=== PATIENT | female | born 1965 | race Caucasian/White ===

== ENCOUNTER 2021-12-05 12:25 | Emergency (ER) | payer MEDICARE, OTHER ==
[2021-12-05] MEDS ORDERED: MOBIC15 MG PO (14:28)
[2021-12-05] MEDS ORDERED: ONDANSETRON ODT4 MG SL (14:28)
== END 2021-12-05 14:35 | disposition home or self-care (01) ==
LOC: ER1 12:25
DX: M17.11 Unilateral primary osteoarthritis, right knee (principal); F17.200 Nicotine dependence, unspecified, uncomplicated; I10 Essential (primary) hypertension; Z88.2 Allergy status to sulfonamides; Z87.81 Personal history of (healed) traumatic fracture
CPT/HCPCS: 29505; 73562; 99283

== ENCOUNTER → 2022-01-07 | Outpatient (CLI) | payer MEDICARE, OTHER ==
[~2022-01-07] MED LIST: ASPIRIN EC81 MG PO; CLONAZEPAM1 MG PO; COLCHICINE0.6 MG PO; CRESTOR10 MG PO; CYCLOBENZAPRINE10 MG PO; ENDOCET 7.5-321 EACH PO; LEVOTHYROXINE25 MC1 PO; MOBIC15 MG PO; ONDANSETRON ODT4 MG SL; PROTONIX 40 MG40 M1 PO; QUETIAPINE FUM200 MG PO; ROPINIROLE HC0.25 MG PO; VITAMIN D21250 MCG PO; ZOFRAN 4 MG TAB4 MG PO; ZOLOFT100 MG PO
[2022-01-07 14:49] LABS: BUN/CREATININE RATIO 14 (0-10)
== END ==
LOC: LAB 13:07
PROVIDERS: Orthopaedic Surgery
DX: Z01.812 Encounter for preprocedural laboratory examination (principal)
CPT/HCPCS: 36415; 80048; 86850; 86900; 86901

== ENCOUNTER 2022-01-08 07:46 | Day surgery (SDC) | payer MEDICARE, OTHER ==
[~2022-01-08] VITALS: Ht 154.9 cm; Wt 81.2 kg
[~2022-01-08 07:46] MED LIST changes: -ASPIRIN EC81 MG PO; -COLCHICINE0.6 MG PO; -CYCLOBENZAPRINE10 MG PO; -ENDOCET 7.5-321 EACH PO; -ZOFRAN 4 MG TAB4 MG PO
[2022-01-08] MEDS ORDERED: COLCHICINE0.6 MG PO (08:22)
[2022-01-08] MEDS ORDERED: CYCLOBENZAPRINE10 MG PO (14:44)
[2022-01-08] MEDS ORDERED: ASPIRIN EC81 MG PO (14:44)
[2022-01-08] MEDS ORDERED: ENDOCET 7.5-321 EACH PO (14:44)
[2022-01-08] MEDS ORDERED: ZOFRAN 4 MG TAB4 MG PO (14:44)
[2022-01-09 03:30] LABS: HEMOGLOBIN 10.9 gm/dl (12.3-15.3); RED BLOOD COUNT 3.35 M/UL (4.00-5.10); WHITE BLOOD COUNT 13.3 K/UL (4.5-11.0)
[2022-01-09 03:42] LABS: BUN/CREATININE RATIO 12 (0-10)
[2022-01-10 05:17] LABS: HEMOGLOBIN 8.3 gm/dl (12.3-15.3); RED BLOOD COUNT 2.52 M/UL (4.00-5.10); WHITE BLOOD COUNT 8.1 K/UL (4.5-11.0)
[2022-01-10 05:38] LABS: BUN/CREATININE RATIO 8 (0-10)
--- NOTE | 2022-01-10 15:23 | NUR ---
NURSE TRIED TO CALL REPORT TO [facility] PER CASE MANAGEMENT. [facility] THEY DO NOT COVER THE AREA THAT THE PATIENT LIVES; ONLY HOSPICE IS COVERED IN THAT AREA. NURSE WILL CALL TO INFORM MOTION PICTURE SET UP WORKER OF SITUATION.
== END 2022-01-10 14:30 | disposition home or self-care (01) ==
LOC: M/S 07:46 → OR 07:46 → M/S 16:09 → OR 01-10 14:30
PROVIDERS: Orthopaedic Surgery
DX: M17.31 Unilateral post-traumatic osteoarthritis, right knee (principal); T14.90XS Injury, unspecified, sequela; I10 Essential (primary) hypertension; E78.5 Hyperlipidemia, unspecified; J44.9 Chronic obstructive pulmonary disease, unspecified; G43.909 Migraine, unspecified, not intractable, without status migrainosus; E03.9 Hypothyroidism, unspecified; K21.9 Gastro-esophageal reflux disease without esophagitis; G47.33 Obstructive sleep apnea (adult) (pediatric); F17.210 Nicotine dependence, cigarettes, uncomplicated; I95.9 Hypotension, unspecified; D62 Acute posthemorrhagic anemia; F32.A Depression, unspecified; Z88.2 Allergy status to sulfonamides; X58.XXXS Exposure to other specified factors, sequela; Z20.822 Contact with and (suspected) exposure to COVID-19
CPT/HCPCS: 73560; 80048; 85027; 87070; 87205; 94640; 94664; 94760; 97110-GP-CQ; 97116-GP-CQ; 97161; 97166; 97530; 97530-GP-CQ; 97535; C1776; J0592; J0690; J1100; J1170; J1644; J1885; J2250; J2405; J2704; J2710; J2795; J3010; J3370; J7030; J7120; P9045